=== PATIENT | female | born 1950 | race Caucasian/White ===

== ENCOUNTER → 2017-04-06 | Outpatient (CLI) | payer MEDICARE ==
[~2017-04-06] MED LIST: 'CLONIDINE0.1 MG PO; ALEVE220 MG; ASPIR LOW81 MG PO; ATENOLOL25 MG; ATENOLOL25 MG PO; BACTRIM DS 8001 TA1; BACTRIM DS 8001 TA1 PO; BUFFERED ASPIR325 M1; CAL-600600 MG; CLONIDINE0.1 MG; CLONIDINE0.1 MG PO; ENALAPRIL20 MG; ENALAPRIL20 MG PO; EPA FISH OIL1000 MG PO; EVISTA60 MG; EVISTA60 MG PO; FLOMAX0.4 MG PO; HYDROCODONE BIT1 T11 PO; JANUMET 500 MG-1 TAB; LEVOTHYROXIN0.025 MG; LEVOTHYROXIN0.025 MG PO; LIPITOR20 MG; METFORMIN500 MG PO; NORCO 5-325 TA1 EACH PO; OXYCODONE AND A1 TA3 PO; PERCOCET 325 MG1 TA7 PO; PRESERVISION LU1 SGL PO; TRAMADOL HCL50 MG PO; ULTRAM50 MG; ULTRAM50 MG PO; UNASYN 2 GM-11.5 GM IV; VICO10300 PO; VICODIN 5/500 505 M1; VITAMIN D32000 IU PO; ZIPSOR25 MG; Zofran4 MG PO
[2017-04-06 10:03] LABS: HEMATOCRIT 44.3 % (37.0-47.0); HEMOGLOBIN 14.7 g/dl (12.0-16.0); MEAN CELL VOLUME 93.5 fl (81.0-99.0); MEAN CORPUSCULAR HGB CONC 33.2 g/dl (33.0-37.0); MEAN PLATELET VOLUME 10.3 fl (9.6-12.3); RED BLOOD COUNT 4.74 10*6/uL (4.10-5.10); RED CELL DISTRI WIDTH 13.7 % (0-14.5); WHITE BLOOD COUNT 6.6 10*3/uL (4.8-10.8)
[2017-04-06 10:16] LABS: ALBUMIN 3.2 gm/dl (3.1-4.5); ALKALINE PHOSPHATASE 113 U/L (45-117); BILIRUBIN, DIRECT < 0.1 mg/dL (0.0-0.2); BILIRUBIN, TOTAL 0.4 mg/dl (0.2-1.0); BUN 16 mg/dl (7-24); CARBON DIOXIDE 28 mmol/L (21-32); CHLORIDE 108 mmol/L (98-107); CHOLESTEROL 217 mg/dL (<200); EST GLOM FILT AFRICAN AMERICAN > 60 ml/min; GLUCOSE 95 mg/dL (65-99); HDL CHOLESTEROL 42 mg/dl (40-60); LDL CHOLESTEROL 134 mg/dL (9-159); POTASSIUM 4.1 mmol/L (3.5-5.1); SGOT/AST 19 IU/L (3-35); SGPT/ALT 27 U/L (12-78); SODIUM 144 mmol/L (136-145); THYROXINE (T4) TOTAL 8.7 ug/dl (4.8-13.9); TOTAL PROTEIN 6.9 gm/dL (6.4-8.2); TRIGLYCERIDES 204 mg/dl (<150); VLDL CHOLESTEROL 41 mg/dL (6-40)
[2017-04-06 10:22] LABS: HEMOGLOBIN A1c 5.7 % (4.8-5.6)
== END | disposition home or self-care (01) ==
LOC: LAB 09:35
PROVIDERS: Family Medicine
DX: E03.9 Hypothyroidism, unspecified (principal); E78.00 Pure hypercholesterolemia, unspecified; R74.8 Abnormal levels of other serum enzymes; R73.9 Hyperglycemia, unspecified; Z79.899 Other long term (current) drug therapy

== ENCOUNTER 2017-07-11 14:38 | Emergency (ER) | payer MEDICARE ==
[~2017-07-11] VITALS: Ht 160 cm; Wt 103.0 kg
[2017-07-11 14:47] VITALS: BP 122/80
[2017-07-11 15:08] LABS: BILIRUBIN NEGATIVE (NEGATIVE); BLOOD 2+ (NEGATIVE); CLARITY CLOUDY (CLEAR); COLOR YELLOW (YELLOW); GLUCOSE NEGATIVE (NEGATIVE); KETONE NEGATIVE (NEGATIVE); LEUKO ESTERASE 3+ (NEGATIVE); NITRITE POSITIVE (NEGATIVE); PH 5.5 (5.0-9.0); UROBILINOGEN 0.2 E.U./dl (0.2-1.0)
[2017-07-11 15:17] LABS: BACTERIA 2+; EPITHELIAL CELLS TNTC; WBC TNTC wbc/hpf (0-5)
[2017-07-11 15:24] LABS: BASO % 0.4 % (0.0-1.0); EOS % 0.3 % (1.0-4.0); HEMATOCRIT 43.7 % (37.0-47.0); HEMOGLOBIN 14.4 g/dl (12.0-16.0); LYMPH # 1.1 10*3/uL (1.3-4.4); LYMPH % 10.6 % (27.0-41.0); MEAN CELL VOLUME 96.5 fl (81.0-99.0); MEAN CORPUSCULAR HGB 31.8 pg (27.0-31.0); MEAN PLATELET VOLUME 9.8 fl (9.6-12.3); MONO % 10.1 % (3.0-9.0); NEUT # 7.8 10*3/uL (2.3-7.9); NEUT % 78.1 % (47.0-73.0); PLATELET COUNT AUTOMATED 199 10*3/uL (130-400); RED BLOOD COUNT 4.53 10*6/uL (4.10-5.10); RED CELL DISTRI WIDTH 13.8 % (0-14.5)
[2017-07-11 15:39] LABS: ALBUMIN 2.9 gm/dl (3.1-4.5); ALKALINE PHOSPHATASE 120 U/L (45-117); BUN 18 mg/dl (7-24); CHLORIDE 106 mmol/L (98-107); CREATININE 0.88 mg/dL (0.55-1.02); POTASSIUM 4.2 mmol/L (3.5-5.1); SGOT/AST 16 IU/L (3-35); SGPT/ALT 26 U/L (12-78); SODIUM 141 mmol/L (136-145); TOTAL PROTEIN 7.2 gm/dL (6.4-8.2)
[2017-07-11] MEDS ORDERED: PYRIDIUM200 M1 PO (16:57)
[2017-07-11] MEDS ORDERED: MACROBID100 M1 PO (16:57)
== END 2017-07-11 19:49 | disposition home or self-care (01) ==
LOC: ED 14:38
PROVIDERS: Nurse Practitioner Family
DX: N23 Unspecified renal colic (principal); R11.0 Nausea; R68.83 Chills (without fever); Z88.8 Allergy status to other drugs, medicaments and biological substances; Z87.442 Personal history of urinary calculi; Z79.82 Long term (current) use of aspirin; Z79.899 Other long term (current) drug therapy

== ENCOUNTER → 2018-01-08 | Outpatient (CLI) | payer MEDICARE ==
[~2018-01-08] MED LIST changes: +MACROBID100 M1 PO; +PYRIDIUM200 M1 PO
[2018-01-08 17:17] LABS: BASO # 0.1 10*3/uL (0.0-0.1); BASO % 0.6 % (0.0-1.0); EOS # 0.2 10*3/uL (0.0-0.4); EOS % 2.3 % (1.0-4.0); HEMATOCRIT 45.4 % (37.0-47.0); HEMOGLOBIN 14.6 g/dl (12.0-16.0); LYMPH % 22.4 % (27.0-41.0); MEAN CORPUSCULAR HGB 30.2 pg (27.0-31.0); MEAN CORPUSCULAR HGB CONC 32.2 g/dl (33.0-37.0); MONO # 0.6 10*3/uL (0.1-1.0); MONO % 6.1 % (3.0-9.0); NEUT # 6.2 10*3/uL (2.3-7.9); NEUT % 68.3 % (47.0-73.0); PLATELET COUNT AUTOMATED 241 10*3/uL (130-400); RED BLOOD COUNT 4.83 10*6/uL (4.10-5.10); RED CELL DISTRI WIDTH 14.4 % (0-14.5); WHITE BLOOD COUNT 9.1 10*3/uL (4.8-10.8)
[2018-01-08 17:46] LABS: ALBUMIN 3.3 gm/dl (3.1-4.5); ALKALINE PHOSPHATASE 117 U/L (45-117); BILIRUBIN, DIRECT < 0.1 mg/dL (0.0-0.2); BUN 21 mg/dl (7-24); CHLORIDE 107 mmol/L (98-107); CREATININE 0.82 mg/dL (0.55-1.02); POTASSIUM 4.1 mmol/L (3.5-5.1); SGOT/AST 17 IU/L (3-35); SGPT/ALT 26 U/L (12-78); SODIUM 141 mmol/L (136-145); TOTAL PROTEIN 7.4 gm/dL (6.4-8.2)
== END | disposition home or self-care (01) ==
LOC: LAB 15:42
PROVIDERS: Family Medicine
DX: J98.11 Atelectasis (principal); I10 Essential (primary) hypertension; R73.9 Hyperglycemia, unspecified

== ENCOUNTER → 2018-08-22 | Outpatient (CLI) | payer MEDICARE ==
[2018-08-22 10:18] LABS: BASO % 0.6 % (0.0-1.0); EOS # 0.3 10*3/uL (0.0-0.4); EOS % 3.8 % (1.0-4.0); HEMATOCRIT 45.1 % (37.0-47.0); HEMOGLOBIN 14.7 g/dl (12.0-16.0); LYMPH # 1.7 10*3/uL (1.3-4.4); LYMPH % 25.1 % (27.0-41.0); MEAN CORPUSCULAR HGB 31.6 pg (27.0-31.0); MEAN CORPUSCULAR HGB CONC 32.6 g/dl (33.0-37.0); MEAN PLATELET VOLUME 10.2 fl (9.6-12.3); MONO # 0.5 10*3/uL (0.1-1.0); MONO % 7.6 % (3.0-9.0); NEUT # 4.1 10*3/uL (2.3-7.9); NEUT % 62.6 % (47.0-73.0); PLATELET COUNT AUTOMATED 202 10*3/uL (130-400); RED BLOOD COUNT 4.65 10*6/uL (4.10-5.10); RED CELL DISTRI WIDTH 14.3 % (0-14.5); WHITE BLOOD COUNT 6.6 10*3/uL (4.8-10.8)
[2018-08-22 10:44] LABS: ALBUMIN 3.3 gm/dl (3.1-4.5); ALKALINE PHOSPHATASE 117 U/L (45-117); BILIRUBIN, DIRECT 0.1 mg/dL (0.0-0.2); BUN 16 mg/dl (7-24); CHLORIDE 109 mmol/L (98-107); CHOLESTEROL 149 mg/dL (<200); CREATININE 0.79 mg/dL (0.55-1.02); HDL CHOLESTEROL 40 mg/dl (40-60); LDL CHOLESTEROL 80 mg/dL (9-159); POTASSIUM 4.4 mmol/L (3.5-5.1); SGOT/AST 14 IU/L (3-35); SGPT/ALT 26 U/L (12-78); SODIUM 145 mmol/L (136-145); THYROXINE (T4) TOTAL 9.2 ug/dl (4.8-13.9); TRIGLYCERIDES 145 mg/dl (<150); VLDL CHOLESTEROL 29 mg/dL (6-40)
== END | disposition home or self-care (01) ==
LOC: LAB 09:35
PROVIDERS: Family Medicine
DX: E03.9 Hypothyroidism, unspecified (principal); R73.9 Hyperglycemia, unspecified

== ENCOUNTER → 2018-10-26 | Outpatient (CLI) | payer MEDICARE | END | disposition home or self-care (01) | LOC: LAB 14:26 | DX: E55.9 Vitamin D deficiency, unspecified (principal) ==

== ENCOUNTER → 2019-07-23 | Outpatient (CLI) | payer MEDICARE ==
[~2019-07-23] MED LIST changes: +CIPRO500 MG PO; +COREG12.5 M1 PO; +HYDR25T PO; +OXYBUTYNIN5 MG PO
[2019-07-23 12:26] LABS: BASO % 0.2 % (0.0-1.0); HEMATOCRIT 47.1 % (37.0-47.0); HEMOGLOBIN 15.3 g/dl (12.0-16.0); LYMPH # 1.5 10*3/uL (1.3-4.4); LYMPH % 15.6 % (27.0-41.0); MEAN CELL VOLUME 93.5 fl (81.0-99.0); MEAN CORPUSCULAR HGB 30.4 pg (27.0-31.0); MEAN CORPUSCULAR HGB CONC 32.5 g/dl (33.0-37.0); MEAN PLATELET VOLUME 10.5 fl (9.6-12.3); MONO # 0.8 10*3/uL (0.1-1.0); MONO % 7.9 % (3.0-9.0); NEUT # 7.3 10*3/uL (2.3-7.9); NEUT % 75.9 % (47.0-73.0); PLATELET COUNT AUTOMATED 256 10*3/uL (130-400); RED BLOOD COUNT 5.04 10*6/uL (4.10-5.10); RED CELL DISTRI WIDTH 13.8 % (0-14.5); WHITE BLOOD COUNT 9.7 10*3/uL (4.8-10.8)
[2019-07-23 12:46] LABS: ALBUMIN 3.3 gm/dl (3.1-4.5); BILIRUBIN, DIRECT < 0.1 mg/dL (0.0-0.2); CHLORIDE 110 mmol/L (98-107); CHOLESTEROL 180 mg/dL (<200); CREATININE 0.84 mg/dL (0.55-1.02); POTASSIUM 4.1 mmol/L (3.5-5.1); SGOT/AST 11 IU/L (3-35); SODIUM 148 mmol/L (136-145); THYROXINE (T4) TOTAL 8.4 ug/dl (4.8-13.9); TRIGLYCERIDES 85 mg/dl (<150); VLDL CHOLESTEROL 17 mg/dL (6-40)
[2019-07-23 12:53] LABS: ALKALINE PHOSPHATASE 124 U/L (45-117); BUN 23 mg/dl (7-24); HDL CHOLESTEROL 48 mg/dl (40-60); LDL CHOLESTEROL 115 mg/dL (9-159); SGPT/ALT 19 U/L (12-78); THYROID STIM HORMONE (HS) 0.809 uIU/ml (0.358-4.75); TOTAL PROTEIN 7.1 gm/dL (6.4-8.2)
== END | disposition home or self-care (01) ==
LOC: LAB 11:37
PROVIDERS: Family Medicine
DX: E55.9 Vitamin D deficiency, unspecified (principal); I10 Essential (primary) hypertension; R73.9 Hyperglycemia, unspecified

== ENCOUNTER → 2019-09-03 | Outpatient (CLI) | payer MEDICARE ==
[2019-09-03 16:14] LABS: PHOSPHOROUS 2.6 mg/dL (2.5-4.9); POTASSIUM 4.7 mmol/L (3.5-5.1)
== END | disposition home or self-care (01) ==
LOC: LAB 15:01
PROVIDERS: Family Medicine
DX: E83.52 Hypercalcemia (principal); E87.0 Hyperosmolality and hypernatremia

== ENCOUNTER 2019-11-23 21:31 | Inpatient (IN) | payer MEDICARE ==
[~2019-11-23] VITALS: Ht 160 cm; Wt 103.9 kg
[2019-11-23 22:06] VITALS: BP 176/84
[2019-11-23 22:11] LABS: BASO % 0.4 % (0.0-1.0); EOS # 0.2 10*3/uL (0.0-0.4); EOS % 1.8 % (1.0-4.0); HEMATOCRIT 49.7 % (37.0-47.0); HEMOGLOBIN 15.8 g/dl (12.0-16.0); LYMPH % 17.9 % (27.0-41.0); MEAN CELL VOLUME 94.7 fl (81.0-99.0); MEAN CORPUSCULAR HGB 30.1 pg (27.0-31.0); MEAN CORPUSCULAR HGB CONC 31.8 g/dl (33.0-37.0); MEAN PLATELET VOLUME 10.3 fl (9.6-12.3); MONO # 0.8 10*3/uL (0.1-1.0); MONO % 7.7 % (3.0-9.0); NEUT # 7.9 10*3/uL (2.3-7.9); NEUT % 71.7 % (47.0-73.0); PLATELET COUNT AUTOMATED 233 10*3/uL (130-400); RED BLOOD COUNT 5.25 10*6/uL (4.10-5.10); RED CELL DISTRI WIDTH 13.8 % (0-14.5); WHITE BLOOD COUNT 10.9 10*3/uL (4.8-10.8)
[2019-11-23 22:22] LABS: ACT PARTIAL THROMBO TIME 27.1 SECONDS (20.0-32.1)
[2019-11-23 22:27] LABS: ALBUMIN 3.4 gm/dl (3.1-4.5); ALKALINE PHOSPHATASE 145 U/L (45-117); BUN 15 mg/dl (7-24); CHLORIDE 107 mmol/L (98-107); CREATININE 0.92 mg/dL (0.55-1.02); POTASSIUM 4.3 mmol/L (3.5-5.1); SGOT/AST 10 IU/L (3-35); SGPT/ALT 26 U/L (12-78); SODIUM 141 mmol/L (136-145); TOTAL PROTEIN 7.7 gm/dL (6.4-8.2)
[2019-11-23 22:28] LABS: TROPONIN I < 0.015 ng/ml (<0.045)
--- NOTE | 2019-11-23 22:31 | NUR ---
PT IS RESTING MORE COMFORTABLY AFTER THE MEDICATION. SHE IS STILL HAVING SOME PAIN BUT MORE COMFORTABLE. WILL CONTINUE TO MONITOR.
--- NOTE | 2019-11-23 23:05 | NUR ---
PT REPORTS THAT HER PAIN IS STARTING TO COME BACK. DOC MADE AWARE.
--- NOTE | 2019-11-23 23:24 | NUR ---
PT MEDICATED PER DOC ORDER AND NOW TO CT SCAN.
[2019-11-24] VITALS (8 sets, daily range): BP systolic 125–161; BP diastolic 68–106
--- NOTE | 2019-11-24 00:08 | NUR ---
PT RESTING IN ROOM WITH EYES CLOSED. NO SIGNS OF ACUTE DISTRESS. PENDING CT RESULTS .
--- NOTE | 2019-11-24 01:46 | NUR ---
A 69, admitted to , under the services of XAVIER Ortez DO with a diagnosis of CHEST PAIN, CHOLELITHIASIS, BILIARY COLIC. Chief complaint is LEFT BREAST PAIN, LUQ PAIN. Patient arrived via stretcher from ER. Monitor applied. Initial assessment completed. Vital signs taken and recorded. DR. Zuleyka MAZARIEGOS notified of admission to the unit. Orders received. See assessment for past medical history, medications and allergies. Patient and/or family oriented to [facility]. visitation policy reviewed. Clothing/patient valuable form completed. SIMON BOWEN RN
[2019-11-24] MEDS ORDERED: OMEPRAZOLE20 M2 PO (02:14)
[2019-11-24 04:06] LABS: BASO % 0.3 % (0.0-1.0); EOS # 0.1 10*3/uL (0.0-0.4); EOS % 0.8 % (1.0-4.0); HEMATOCRIT 44.3 % (37.0-47.0); HEMOGLOBIN 14.3 g/dl (12.0-16.0); LYMPH # 1.6 10*3/uL (1.3-4.4); LYMPH % 14.5 % (27.0-41.0); MEAN CELL VOLUME 93.7 fl (81.0-99.0); MEAN CORPUSCULAR HGB 30.2 pg (27.0-31.0); MEAN CORPUSCULAR HGB CONC 32.3 g/dl (33.0-37.0); MEAN PLATELET VOLUME 10.2 fl (9.6-12.3); MONO # 0.8 10*3/uL (0.1-1.0); MONO % 7.3 % (3.0-9.0); NEUT # 8.7 10*3/uL (2.3-7.9); NEUT % 76.8 % (47.0-73.0); PLATELET COUNT AUTOMATED 201 10*3/uL (130-400); RED BLOOD COUNT 4.73 10*6/uL (4.10-5.10); RED CELL DISTRI WIDTH 13.6 % (0-14.5); WHITE BLOOD COUNT 11.3 10*3/uL (4.8-10.8)
[2019-11-24 04:20] LABS: BUN 14 mg/dl (7-24); CHLORIDE 109 mmol/L (98-107); CREATININE 0.76 mg/dL (0.55-1.02); SODIUM 142 mmol/L (136-145)
[2019-11-24 04:25] LABS: CHOLESTEROL 215 mg/dL (<200); HDL CHOLESTEROL 39 mg/dl (40-60); LDL CHOLESTEROL 152 mg/dL (9-159); PHOSPHOROUS 2.5 mg/dL (2.5-4.9); TRIGLYCERIDES 120 mg/dl (<150); VLDL CHOLESTEROL 24 mg/dL (6-40)
--- NOTE | 2019-11-24 05:26 | NUR ---
PATIENT REQUESTED PRN MORPHINE AT THIS TIME FOR 8/10 PAIN IN HER LEFT CHEST/BREAST/LUQ. PATIENT ALERT AND ORIENTED X3 AT THIS TIME.
--- NOTE | 2019-11-24 06:05 | NUR ---
PATIENT STATED THAT HER PAIN WAS NOW A 4/10 REMAINS A&O X3.
--- NOTE | 2019-11-24 07:05 | NUR ---
PT'S HEART RATE UP TO 150. ON ASSESSMENT OF PT SHE IS DIAPHORETIC, SHORT OF BREATH AND C/O SEVERE PAIN UNDER LEFT BREAST AND AROUND TO BACK. BP 149/106. POX 92% ON ROOM AIR. HR 148. O2 PLACED ON PT AT 2L AND DR KILPATRICK NOTIFIED OF PT CHANGE IN CONDITION. EKG AND LAB WORK ORDERED STAT.
--- NOTE | 2019-11-24 07:19 | NUR ---
DR KILPATRICK IN TO SEE PT.
--- NOTE | 2019-11-24 08:22 | NUR ---
PT BREATHING ALITTLE EASIER NOT ANXIOUS SINCE RECEIVING ATIVAN AND MORPHINE IV BUT HEART RATE REMAINS IN THE 140'S AND PT STATES PAIN TO LEFT BREAST AREA REMAINS AN 8/10 ON PAIN SCALE IF SHE IS LYING STILL AND 10/10 IF SHE TRIES TO MOVE. POX 93% ON 3L NC. BP 155/88. DR KILPATRICK NOTIFIED OF CONDITION.
--- NOTE | 2019-11-24 10:30 | NUR ---
PT RESTING IN BED SLEEPING. HEART RATE DOWN TO 102 AT THIS TIME.
--- NOTE | 2019-11-24 11:36 | NUR ---
PT WOKE UP AND STATED HER PAIN WAS COMING BACK. CONTINUES TO C/O TO LEFT BREAST AREA PAIN. NSR RATE 80'S AT THIS TIME. MEDICATED WITH MORPHINE 3MG IV AT THIS TIME.
--- NOTE | 2019-11-24 12:14 | NUR ---
PT STATED MORPHINE WAS EFFECTIVE LONG SHE LAYS STILL THE PAIN IS BEARABLE BUT IS TERRIBLE WHEN SHE MOVES STILL.
--- NOTE | 2019-11-24 13:06 | NUR ---
DR RECINOS ANSWERING SERVICE MADE AWARE OF NEW CONSULT ORDER.
--- NOTE | 2019-11-24 15:49 | NUR ---
PT MEDICATED WITH MORPHINE 3MG IV AT HER REQUEST. PT CONTINUES TO C/O SEVERE PAIN TO HER LEFT BREAST AREA WORSE WITH MOVEMENT OR DEEP BREATHING.
--- NOTE | 2019-11-24 20:30 | NUR ---
PRN IV MORPHINE GIVEN AT THIS TIME FOR 10/10 LEFT BREAST PAIN, NON-RADIATING. PATIENT ANXIOUS, TACHYPNEIC AND TACHYCARDIC. ATTEMPTED TO INSTRUCT PATIENT ON BREATHING TECHNIQUES AND REPOSITIONING FOR PAIN AND ANXIETY RELIEF SHE STATED THAT ONLY THE MORPHINE WOULD WORK. CALL LIGHT WITHIN REACH WILL CONTINUE TO MONITOR.
--- NOTE | 2019-11-24 21:25 | NUR ---
PATIENT RESTING IN BED IN A POSITION OF COMFORT WITH EYES CLOSED, RESPIRATIONS EASY AND NON-LABORED AT THIS TIME, PATIENT ARROUSABLE BUT DROWSY, STATED SHE FELT BETTER AND PAIN WAS A 4/10 AT THIS TIME, CALL LIGHT WITHIN REACH, WILL CONTINUE TO MONITOR.
[2019-11-25] VITALS: BP 139/77
--- NOTE | 2019-11-25 01:24 | NUR ---
PATIENT MEDICATED WITH PRN IV MORPHINE AT THIS TIME FOR 10/10 LEFT BREAST PAIN. PATIENT A&O X3.
--- NOTE | 2019-11-25 02:22 | NUR ---
PATIENT RESTING IN BED IN A POSITION OF COMFORT AT THIS TIME WITH EYES CLOSED, ARROUSABLE BUT DROWSY. CALL LIGHT WITHIN REACH. WILL CONTINUE TO MONITOR,
--- NOTE | 2019-11-25 03:12 | NUR ---
24 HOUR CHART CHECK COMPLETED
[2019-11-25 06:22] LABS: BASO % 0.2 % (0.0-1.0); EOS # 0.2 10*3/uL (0.0-0.4); HEMATOCRIT 44.4 % (37.0-47.0); HEMOGLOBIN 14.1 g/dl (12.0-16.0); LYMPH # 1.5 10*3/uL (1.3-4.4); LYMPH % 17.4 % (27.0-41.0); MEAN CELL VOLUME 93.5 fl (81.0-99.0); MEAN CORPUSCULAR HGB 29.7 pg (27.0-31.0); MEAN CORPUSCULAR HGB CONC 31.8 g/dl (33.0-37.0); MEAN PLATELET VOLUME 10.5 fl (9.6-12.3); MONO # 0.8 10*3/uL (0.1-1.0); MONO % 9.4 % (3.0-9.0); NEUT # 5.9 10*3/uL (2.3-7.9); NEUT % 70.8 % (47.0-73.0); PLATELET COUNT AUTOMATED 212 10*3/uL (130-400); RED BLOOD COUNT 4.75 10*6/uL (4.10-5.10); RED CELL DISTRI WIDTH 13.8 % (0-14.5); WHITE BLOOD COUNT 8.3 10*3/uL (4.8-10.8)
[2019-11-25 06:30] LABS: ALBUMIN 2.8 gm/dl (3.1-4.5); ALKALINE PHOSPHATASE 114 U/L (45-117); BUN 16 mg/dl (7-24); CHLORIDE 109 mmol/L (98-107); CREATININE 0.77 mg/dL (0.55-1.02); POTASSIUM 3.4 mmol/L (3.5-5.1); SGOT/AST 10 IU/L (3-35); SGPT/ALT 20 U/L (12-78); SODIUM 141 mmol/L (136-145); TOTAL PROTEIN 6.5 gm/dL (6.4-8.2)
--- NOTE | 2019-11-25 07:30 | NUR ---
PT RESTING IN BED. VOICES NO CONCERNS AT THIS TIME. RESPS EASY AND NON LABORED. NO S/S OF DISTRESS NOTED. VSS. CALL LIGHT WITHIN REACH. WHITE BOARD UPDATED.
[2019-11-25 07:35] VITALS: BP 118/76
--- NOTE | 2019-11-25 07:51 | NUR ---
ASSESSMENT COMPLETED AND DOCUMENTED. PT C/O OF LEFT CHEST PAIN UNDER THE LEFT BREAST. RATES ON PAIN SCALE AN 8. MEDICATED PER MAR. PT. [facility] WITH TRANSPORT. ANGELLA ARNETT [facility]
--- NOTE | 2019-11-25 07:51 | NUR ---
ASSESSMENT COMPLETED AND DOCUMENTED. PT. C/O OF LEFT CHEST PAIN UNDER THE LEFT BREAST. ON PAIN SCALE RATES AN 8. MEDICATED PER MAR. PT. ESCORTED TO [facility] VIA W/C WITH TRANSPORT. ANGELLA DSOUZA
--- NOTE | 2019-11-25 07:54 | NUR ---
PT TAKEN OFF FLOOR TO ULTRASOUND
[2019-11-25 08:14] LABS: CLARITY SL CLOUDY (CLEAR); COLOR YELLOW (YELLOW)
[2019-11-25 08:15] LABS: BILIRUBIN NEGATIVE (NEGATIVE); BLOOD NEGATIVE (NEGATIVE); GLUCOSE NEGATIVE (NEGATIVE); KETONE NEGATIVE (NEGATIVE); LEUKO ESTERASE TRACE (NEGATIVE); NITRITE POSITIVE (NEGATIVE); SPECIFIC GRAVITY 1.025 (1.005-1.030); UROBILINOGEN 0.2 E.U./dl (0.2-1.0)
--- NOTE | 2019-11-25 08:15 | NUR ---
PT RETURN FROM ULTRASOUND. REQUESTING DIET ORDER. FLOOR NURSE AWARE. WILL REMAIN NPO UNTIL RESULTS OF GB SONO COMPLETE.
--- NOTE | 2019-11-25 08:16 | NUR ---
PT BACK FROM ULTRASOUND
--- NOTE | 2019-11-25 08:19 | NUR ---
Shift chart check completed.
[2019-11-25 08:23] LABS: BACTERIA 4+; WBC 41-50 wbc/hpf (0-5)
--- NOTE | 2019-11-25 08:27 | NUR ---
PHYSICAL THERAPY Pt admitted from home with abdominal and chest pain testing still in progress, please consult PT if functional status changes from baseline, thank you [facility]
--- NOTE | 2019-11-25 08:46 | NUR ---
PT REQUESTING TO EAT. CALLED DR MAZARIEGOS WHO STATED THEY WERE AWAITING HER ULTRASOUND RESULTS BEFORE CHANGING HER DIET ORDER AND TO KEEP HER NPO.
--- NOTE | 2019-11-25 09:59 | NUR ---
DR ZAPATA IN TO SEE PT
--- NOTE | 2019-11-25 10:04 | NUR ---
PT. RESTING IN BED VISITING WITH FAMILY. NO C/O AT THIS TIME. ANGELLA ARNETT [facility]
--- NOTE | 2019-11-25 11:12 | NUR ---
DR MAZARIEGOS CALLED AND ASKED THIS NURSE TO CALL RADIOLOGY TO SEE WHEN THE PTS ULTRASOUND WAS GOING TO BE READ. SPOKE WITH RADIOLOGY WHO STATED IT WOULD BE READ TODAY.
--- NOTE | 2019-11-25 11:57 | NUR ---
Fruit Grader in to talk to patient. Patient states lives at home with doug. There are no steps in the home. Physician: gaby marshall [facility] Home health services: none Patient's level of ADLs: INDEPENDENT Patient has working utilities: all working DME: none Follow-up physician's appointment after d/c: will be amde by hospitalist nurse director upon discharge Does patient want to access PORTAL?: no Discharge plan discussed with patient, she lives at home with , she is independent in adls and ambulation, she states she will return home when medically stable and denies any home needs. BLADIMIR FERNANDEZ
--- NOTE | 2019-11-25 12:00 | NUR ---
IV TO RIGHT HAND DC'D DUE TO LEAKING WHEN FLUSHED. SITE ASYMPTOMATIC WIHT SLIGHT ECCHYMOSIS NOTED. PT TOLERATED WELL. CATH INTACT.
--- NOTE | 2019-11-25 12:10 | NUR ---
IV MORPHINE GIVEN PER MAR Q4HRS PRN. STATES "IM IN A ALOT OF PAIN" RATES A 7 FOR LEFT CHEST PAIN. ANGELLA ARNETT [facility]
[2019-11-25 12:22] VITALS: BP 128/70
--- NOTE | 2019-11-25 13:15 | NUR ---
PT LAYING IN BED COMFORTABLY, VISITING WITH FRIENDS/FAMILY. PT DENIES PAIN AT THIS TIME. REPORT [facility]
--- NOTE | 2019-11-25 15:57 | NUR ---
Nursing screen received and chart reviewed. Patient admitted for increasing chest pain. If patient has a decline in ADLs, functional mobility, and transfers, please send OT orders. Thank you. Maxine Chiang, OTR/L
[2019-11-25 16:00] VITALS: BP 134/76
--- NOTE | 2019-11-25 16:40 | NUR ---
PT COMPLAINS OF 10/10 L BREAST PAIN. MEDICATED PER ORDER. WILL MONITOR FOR RELIEF. VOICES NO OTHER CONCERNS AT THIS TIME. RESPS EASY AND NON LABORED. CALL LIGHT WITHIN REACH.
--- NOTE | 2019-11-25 18:54 | NUR ---
PT MEDICATED FOR COMPLAINTS OF CONSTIPATION. WILL MONITOR
--- NOTE | 2019-11-25 19:00 | NUR ---
ASSUMED CARE FOR THIS PT AT THIS TIME. PT RESTING IN BED. C/O LT SIDE CHEST DISCOMFORT. VERY POOR INSPIRATION NOTED W/FAINT POSTERIOR BASE CRACKLES. PT ENCOURAGED DEEP BREATHING. PT REFUSING. PT TEACHING GIVEN ON ALL CARDIAC WORK UPS NEGATIVE AND PAIN IS MOST LIKELY LUNG PAIN. PT NON RECEPTIVE. CALL LIGHT IN REACH.
[2019-11-25 20:00] VITALS: BP 131/60
--- NOTE | 2019-11-25 20:40 | NUR ---
PT MEDICATED W/2 PERCOCET FOR C/O LT SIDE CHEST PAIN EXACERBATED W/MOVEMENT AND BREATHING 5/10. PT TEACHING GIVEN ON D/C OF MORPHINE AND LEFT PLEURAL EFFUSIONS AND LEFT ATELECTASIS W/NEED TO IMPROVE INSPIRATION. PT NON COMPLIANT AND WANTS MORPHINE. PT ADVISED TO SPEAK W/ ON ROUNDS TOMORROW. CALL LIGHT IN REACH.
--- NOTE | 2019-11-25 21:30 | NUR ---
PT RESTING QUIETLY IN BED W/EYES CLOSED. NO S/S OF DISTRESS NOTED. PRN PAIN MED EFFECTIVE.
[2019-11-26] VITALS: BP 108/54
--- NOTE | 2019-11-26 03:10 | NUR ---
24 HR chart check completed.
--- NOTE | 2019-11-26 05:52 | NUR ---
PT MEDICATED W/2 PERCOCET FOR C/O LT CHEST PAIN 02/06.
--- NOTE | 2019-11-26 07:00 | NUR ---
ARRIVED ON SHIFT, INTRODUCED TO PATIENT, NO NEEDS VOICED AT THIS TIME, BED IN LOW POSITION, WHEEL LOCKS ON, SIDE RAILS UP X1, CALL LIGHT WITHIN REACH. WHITE BOARD UPDATED.
[2019-11-26 08:00] VITALS: BP 128/70; BP 134/80
--- NOTE | 2019-11-26 08:28 | NUR ---
PT. INSTRUCTED ON I/S. PT. ACHIEVED A VOLUME OF 750 TO 1000. ENCOURAGED PT TO USE I/S Q 1 HOUR AND TO TAKE HOME UPON DISCHARGE. R/A PULSE OX 92%. O2 AVAILABLE AT 2L.
[2019-11-26] MEDS ORDERED: SEPTDS PO (08:56)
--- NOTE | 2019-11-26 09:00 | NUR ---
case management visits with patient, she will return home when medically stable and denies any home needs, case management will follow
--- NOTE | 2019-11-26 11:36 | NUR ---
Nutritional Support Services Note: Pt currently on a cardiac diet consuming 50-100% of meals. No nutrition intervention needed at this time. Will follow if needed. ARSH Reyna dietitic validation intern
[2019-11-26 12:00] VITALS: BP 138/76
--- NOTE | 2019-11-26 12:40 | NUR ---
Discharge instructions reviewed with patient/family. Patient receptive and verbalizes understanding. Follow-up care arranged. Written instructions given to patient/family, REINFORCED THAT SHE HAS APPOINT ON 12/05/2019 @ 12:00 ADVISED SHE NEEDS TO RETAIL STORE ASSOCIATE PERSCRIPTION, IV REMOVED, TELEMETRY, TAKEN OUT VIA W/C BY LUCÍA MCKEON
== END 2019-11-26 12:40 | disposition home or self-care (01) | DRG 206 ==
LOC: ED 21:31 → EDHOLD 11-24 01:12 → 4E 11-24 01:12
PROVIDERS: Emergency Medicine; Emergency Medicine Emergency Medical Services; Student in an Organized Health Care Education/Training Program; ADMIT Internal Medicine
DX: M94.0 Chondrocostal junction syndrome [Tietze] (principal); K80.64 Calculus of gallbladder and bile duct with chronic cholecystitis without obstruction; E44.0 Moderate protein-calorie malnutrition; Z68.41 Body mass index [BMI] 40.0-44.9, adult; N39.0 Urinary tract infection, site not specified; R07.89 Other chest pain; I77.810 Thoracic aortic ectasia; K76.0 Fatty (change of) liver, not elsewhere classified; D72.810 Lymphocytopenia; R73.9 Hyperglycemia, unspecified; E83.41 Hypermagnesemia; I10 Essential (primary) hypertension; M54.5 Low back pain; G89.29 Other chronic pain; K59.03 Drug induced constipation; E78.5 Hyperlipidemia, unspecified; E03.9 Hypothyroidism, unspecified; H35.30 Unspecified macular degeneration; M19.90 Unspecified osteoarthritis, unspecified site; Z96.653 Presence of artificial knee joint, bilateral; Z87.442 Personal history of urinary calculi; Z88.8 Allergy status to other drugs, medicaments and biological substances; Z79.82 Long term (current) use of aspirin; Z79.899 Other long term (current) drug therapy; Z80.1 Family history of malignant neoplasm of trachea, bronchus and lung; Z82.0 Family history of epilepsy and other diseases of the nervous system

== ENCOUNTER → 2020-04-14 | Outpatient (CLI) | payer MEDICARE ==
[~2020-04-14] MED LIST changes: +OMEPRAZOLE20 M2 PO; +SEPTDS PO
[2020-04-14 10:42] LABS: BASO # 0.1 10*3/uL (0.0-0.1); BASO % 0.7 % (0.0-1.0); EOS # 0.3 10*3/uL (0.0-0.4); EOS % 3.8 % (1.0-4.0); HEMATOCRIT 46.9 % (37.0-47.0); LYMPH # 1.8 10*3/uL (1.3-4.4); LYMPH % 25.5 % (27.0-41.0); MEAN CELL VOLUME 95.7 fl (81.0-99.0); MEAN CORPUSCULAR HGB 30.4 pg (27.0-31.0); MEAN CORPUSCULAR HGB CONC 31.8 g/dl (33.0-37.0); MEAN PLATELET VOLUME 10.7 fl (9.6-12.3); MONO # 0.6 10*3/uL (0.1-1.0); MONO % 7.8 % (3.0-9.0); NEUT # 4.4 10*3/uL (2.3-7.9); NEUT % 61.8 % (47.0-73.0); PLATELET COUNT AUTOMATED 242 10*3/uL (130-400); RED CELL DISTRI WIDTH 13.8 % (0-14.5); WHITE BLOOD COUNT 7.1 10*3/uL (4.8-10.8)
[2020-04-14 11:08] LABS: ALBUMIN 3.4 gm/dl (3.1-4.5); ALKALINE PHOSPHATASE 138 U/L (45-117); BILIRUBIN, DIRECT < 0.1 mg/dL (0.0-0.2); BUN 20 mg/dl (7-24); CHLORIDE 108 mmol/L (98-107); CREATININE 1.01 mg/dL (0.55-1.02); POTASSIUM 4.6 mmol/L (3.5-5.1); SGOT/AST 15 IU/L (3-35); SGPT/ALT 25 U/L (12-78); SODIUM 142 mmol/L (136-145); TOTAL PROTEIN 7.3 gm/dL (6.4-8.2)
== END | disposition home or self-care (01) ==
LOC: LAB 10:01
PROVIDERS: Family Medicine
DX: K59.00 Constipation, unspecified (principal); I10 Essential (primary) hypertension; E11.9 Type 2 diabetes mellitus without complications; E55.9 Vitamin D deficiency, unspecified; Z79.899 Other long term (current) drug therapy

== ENCOUNTER → 2020-05-06 | Outpatient (CLI) | payer MEDICARE | END | disposition home or self-care (01) | LOC: US 08:30 | DX: N20.0 Calculus of kidney (principal); N28.1 Cyst of kidney, acquired; N39.0 Urinary tract infection, site not specified ==

== ENCOUNTER → 2021-03-12 | Outpatient (CLI) | payer MEDICARE | END | disposition home or self-care (01) | LOC: LAB 16:03 | PROVIDERS: ATTEND Surgery | DX: E21.3 Hyperparathyroidism, unspecified (principal) ==

== ENCOUNTER → 2021-04-19 | Outpatient (CLI) | payer MEDICARE ==
[2021-04-19 11:57] LABS: BASO # 0.1 10*3/uL (0.0-0.1); BASO % 0.7 % (0.0-1.0); EOS # 0.4 10*3/uL (0.0-0.4); EOS % 5.9 % (1.0-4.0); HEMATOCRIT 45.5 % (37.0-47.0); MEAN CELL VOLUME 94.4 fl (81.0-99.0); MEAN CORPUSCULAR HGB 30.3 pg (27.0-31.0); MEAN CORPUSCULAR HGB CONC 32.1 g/dl (33.0-37.0); MEAN PLATELET VOLUME 10.1 fl (9.6-12.3); MONO # 0.6 10*3/uL (0.1-1.0); MONO % 8.3 % (3.0-9.0); NEUT # 4.2 10*3/uL (2.3-7.9); NEUT % 57.5 % (47.0-73.0); PLATELET COUNT AUTOMATED 240 10*3/uL (130-400); RED BLOOD COUNT 4.82 10*6/uL (4.10-5.10); RED CELL DISTRI WIDTH 13.6 % (0-14.5); WHITE BLOOD COUNT 7.2 10*3/uL (4.8-10.8)
[2021-04-19 12:26] LABS: ALBUMIN 3.2 gm/dl (3.1-4.5); ALKALINE PHOSPHATASE 110 U/L (45-117); BILIRUBIN, DIRECT < 0.1 mg/dL (0.0-0.2); BUN 18 mg/dl (7-24); CHLORIDE 108 mmol/L (98-107); CHOLESTEROL 250 mg/dL (<200); CREATININE 0.78 mg/dL (0.55-1.02); LDL CHOLESTEROL 180 mg/dL (9-159); POTASSIUM 4.3 mmol/L (3.5-5.1); SGOT/AST 11 IU/L (3-35); SGPT/ALT 14 U/L (12-78); SODIUM 145 mmol/L (136-145); THYROXINE (T4) TOTAL 8.1 ug/dl (4.8-13.9); TOTAL PROTEIN 6.8 gm/dL (6.4-8.2); TRIGLYCERIDES 169 mg/dl (<150)
== END | disposition home or self-care (01) ==
LOC: LAB 11:26
PROVIDERS: ATTEND Family Medicine
DX: E03.9 Hypothyroidism, unspecified (principal); R73.9 Hyperglycemia, unspecified

== ENCOUNTER → 2021-05-26 | Outpatient (CLI) | payer MEDICARE | END | disposition home or self-care (01) | LOC: LAB 11:42 | PROVIDERS: ATTEND Internal Medicine Endocrinology, Diabetes & Metabolism | DX: E55.9 Vitamin D deficiency, unspecified (principal) ==

== ENCOUNTER → 2021-06-14 | Outpatient (CLI) | payer MEDICARE ==
[2021-06-15 13:07] LABS: LUTEINIZING HORMONE <0.3 mIU/mL (.)
[2021-06-15 14:08] LABS: PROLACTIN 10.5 ng/mL (4.8-23.3)
== END | disposition home or self-care (01) ==
LOC: LAB 08:23
PROVIDERS: ATTEND Internal Medicine Endocrinology, Diabetes & Metabolism
DX: E24.9 Cushing's syndrome, unspecified (principal)

== ENCOUNTER → 2021-07-01 | Outpatient (CLI) | payer MEDICARE | END | disposition home or self-care (01) | LOC: RAD 14:58 | PROVIDERS: ATTEND Orthopaedic Surgery | DX: M47.817 Spondylosis without myelopathy or radiculopathy, lumbosacral region (principal); M47.814 Spondylosis without myelopathy or radiculopathy, thoracic region; M48.061 Spinal stenosis, lumbar region without neurogenic claudication ==

== ENCOUNTER → 2021-11-29 | Outpatient (CLI) | payer MEDICARE ==
[2021-11-29 13:45] LABS: ALBUMIN 3.2 gm/dl (3.1-4.5); ALKALINE PHOSPHATASE 114 U/L (45-117); BUN 18 mg/dl (7-24); CHLORIDE 110 mmol/L (98-107); CHOLESTEROL 161 mg/dL (<200); FREE T4 1.01 ng/dl (0.76-1.46); LDL CHOLESTEROL 92 mg/dL (9-159); POTASSIUM 4.2 mmol/L (3.5-5.1); SGOT/AST 16 IU/L (3-35); SGPT/ALT 25 U/L (12-78); SODIUM 145 mmol/L (136-145); TOTAL PROTEIN 6.6 gm/dL (6.4-8.2)
== END | disposition home or self-care (01) ==
LOC: LAB 11:01
PROVIDERS: ATTEND Internal Medicine Endocrinology, Diabetes & Metabolism
DX: E83.52 Hypercalcemia (principal); E78.2 Mixed hyperlipidemia; E03.9 Hypothyroidism, unspecified

== ENCOUNTER → 2022-03-16 | Outpatient (CLI) | payer MEDICARE | END | disposition home or self-care (01) | LOC: RAD 16:49 | PROVIDERS: ATTEND Family Medicine | DX: M25.552 Pain in left hip (principal) ==

== ENCOUNTER → 2022-07-08 | Outpatient (CLI) | payer MEDICARE ==
[2022-07-08 18:36] LABS: BASO # 0.1 10*3/uL (0.0-0.1); BASO % 0.6 % (0.0-1.0); EOS # 0.3 10*3/uL (0.0-0.4); HEMATOCRIT 44.7 % (37.0-47.0); LYMPH # 2.2 10*3/uL (1.3-4.4); MEAN CELL VOLUME 94.5 fl (81.0-99.0); MEAN CORPUSCULAR HGB 30.7 pg (27.0-31.0); MEAN CORPUSCULAR HGB CONC 32.4 g/dl (33.0-37.0); MEAN PLATELET VOLUME 10.7 fl (9.6-12.3); MONO # 0.6 10*3/uL (0.1-1.0); MONO % 7.1 % (3.0-9.0); NEUT # 4.8 10*3/uL (2.3-7.9); NEUT % 59.8 % (47.0-73.0); PLATELET COUNT AUTOMATED 232 10*3/uL (130-400); RED BLOOD COUNT 4.73 10*6/uL (4.10-5.10); RED CELL DISTRI WIDTH 13.8 % (0-14.5); WHITE BLOOD COUNT 7.9 10*3/uL (4.8-10.8)
[2022-07-08 18:48] LABS: ALKALINE PHOSPHATASE 103 U/L (45-117); BUN 18 mg/dl (7-24); CHLORIDE 109 mmol/L (98-107); CREATININE 0.76 mg/dL (0.55-1.02); POTASSIUM 4.2 mmol/L (3.5-5.1); SGOT/AST 14 IU/L (3-35); SGPT/ALT 20 U/L (12-78); SODIUM 143 mmol/L (136-145); TOTAL PROTEIN 6.8 gm/dL (6.4-8.2)
== END | disposition home or self-care (01) ==
LOC: LAB 16:21
PROVIDERS: Family Medicine; ATTEND Urology
DX: I10 Essential (primary) hypertension (principal); R73.9 Hyperglycemia, unspecified; N20.0 Calculus of kidney

== ENCOUNTER → 2022-08-08 | Outpatient (CLI) | payer MEDICARE ==
[2022-08-08 15:11] LABS: BASO # 0.1 10*3/uL (0.0-0.1); BASO % 0.8 % (0.0-1.0); EOS # 0.3 10*3/uL (0.0-0.4); EOS % 3.5 % (1.0-4.0); HEMATOCRIT 45.9 % (37.0-47.0); LYMPH # 1.9 10*3/uL (1.3-4.4); LYMPH % 26.3 % (27.0-41.0); MEAN CELL VOLUME 94.1 fl (81.0-99.0); MEAN CORPUSCULAR HGB 30.3 pg (27.0-31.0); MEAN CORPUSCULAR HGB CONC 32.2 g/dl (33.0-37.0); MEAN PLATELET VOLUME 9.8 fl (9.6-12.3); MONO # 0.6 10*3/uL (0.1-1.0); MONO % 8.8 % (3.0-9.0); NEUT # 4.3 10*3/uL (2.3-7.9); NEUT % 60.3 % (47.0-73.0); PLATELET COUNT AUTOMATED 227 10*3/uL (130-400); RED BLOOD COUNT 4.88 10*6/uL (4.10-5.10); RED CELL DISTRI WIDTH 13.8 % (0-14.5); WHITE BLOOD COUNT 7.2 10*3/uL (4.8-10.8)
[2022-08-08 15:12] LABS: BILIRUBIN Negative (Negative); BLOOD Negative (Negative); CLARITY Clear (Clear); COLOR Yellow (Yellow); GLUCOSE Negative (Negative); KETONE Negative (Negative); LEUKO ESTERASE 1+ (Negative); NITRITE Positive (Negative); PH 5.5 (4.5-8.0); SPECIFIC GRAVITY 1.025 (1.001-1.030)
[2022-08-08 15:23] LABS: BACTERIA 4+
[2022-08-08 15:24] LABS: WBC 41-50 wbc/hpf (0-5)
[2022-08-08 15:27] LABS: ACT PARTIAL THROMBO TIME 26.5 SECONDS (20.0-32.1)
== END | disposition home or self-care (01) ==
LOC: LAB 14:37
PROVIDERS: ATTEND Pain Medicine Interventional Pain Medicine
DX: D68.8 Other specified coagulation defects (principal)

== ENCOUNTER → 2022-10-10 | Outpatient (CLI) | payer MEDICARE ==
[2022-10-10 12:24] LABS: BASO # 0.1 10*3/uL (0.0-0.1); BASO % 0.7 % (0.0-1.0); EOS # 0.3 10*3/uL (0.0-0.4); EOS % 3.9 % (1.0-4.0); HEMATOCRIT 45.6 % (37.0-47.0); LYMPH # 1.7 10*3/uL (1.3-4.4); LYMPH % 24.6 % (27.0-41.0); MEAN CELL VOLUME 93.3 fl (81.0-99.0); MEAN CORPUSCULAR HGB 30.9 pg (27.0-31.0); MEAN CORPUSCULAR HGB CONC 33.1 g/dl (33.0-37.0); MEAN PLATELET VOLUME 10.1 fl (9.6-12.3); MONO # 0.5 10*3/uL (0.1-1.0); MONO % 6.6 % (3.0-9.0); NEUT # 4.4 10*3/uL (2.3-7.9); NEUT % 63.8 % (47.0-73.0); PLATELET COUNT AUTOMATED 228 10*3/uL (130-400); RED BLOOD COUNT 4.89 10*6/uL (4.10-5.10); RED CELL DISTRI WIDTH 13.8 % (0-14.5); WHITE BLOOD COUNT 6.9 10*3/uL (4.8-10.8)
[2022-10-10 12:38] LABS: BILIRUBIN Negative (Negative); BUN 12 mg/dl (9-23); CHLORIDE 106 mmol/L (98-107); CLARITY Turbid (Clear); COLOR Yellow (Yellow); CREATININE 0.68 mg/dL (0.55-1.02); GLUCOSE Negative (Negative); SODIUM 143 mmol/L (136-145)
[2022-10-10 12:39] LABS: BLOOD Negative (Negative); KETONE Negative (Negative); LEUKO ESTERASE Trace (Negative); NITRITE Positive (Negative); PH 6.5 (4.5-8.0); SPECIFIC GRAVITY 1.015 (1.001-1.030); UROBILINOGEN 0.2 E.U./dl (0.0-1.0); WBC 16-20 wbc/hpf (0-5)
[2022-10-10 12:40] LABS: BACTERIA 4+
== END | disposition home or self-care (01) ==
LOC: LAB 11:41
PROVIDERS: ATTEND Neurological Surgery
DX: M54.16 Radiculopathy, lumbar region (principal); R82.90 Unspecified abnormal findings in urine; Z79.899 Other long term (current) drug therapy

== ENCOUNTER → 2023-08-21 | Outpatient (CLI) | payer MEDICARE | END | disposition home or self-care (01) | LOC: LAB 13:39 | PROVIDERS: ATTEND Nurse Practitioner Gerontology | DX: N20.0 Calculus of kidney (principal); I70.0 Atherosclerosis of aorta; R73.9 Hyperglycemia, unspecified ==

== ENCOUNTER → 2023-12-04 | Outpatient (CLI) | payer MEDICARE ==
[2023-12-04 12:00] LABS: BASO # 0.1 10*3/uL (0.0-0.1); BASO % 0.8 % (0.0-1.0); EOS # 0.3 10*3/uL (0.0-0.4); EOS % 4.1 % (1.0-4.0); LYMPH # 1.7 10*3/uL (1.3-4.4); LYMPH % 27.9 % (27.0-41.0); MEAN CELL VOLUME 94.7 fl (81.0-99.0); MEAN CORPUSCULAR HGB 30.2 pg (27.0-31.0); MEAN CORPUSCULAR HGB CONC 31.9 g/dl (33.0-37.0); MEAN PLATELET VOLUME 10.1 fl (9.6-12.3); MONO # 0.5 10*3/uL (0.1-1.0); MONO % 7.4 % (3.0-9.0); NEUT # 3.6 10*3/uL (2.3-7.9); NEUT % 59.5 % (47.0-73.0); PLATELET COUNT AUTOMATED 239 10*3/uL (130-400); RED BLOOD COUNT 5.07 10*6/uL (4.10-5.10); RED CELL DISTRI WIDTH 14.2 % (0-14.5); WHITE BLOOD COUNT 6.1 10*3/uL (4.8-10.8)
[2023-12-04 12:41] LABS: ALKALINE PHOSPHATASE 106 U/L (46-116); BUN 14 mg/dl (9-23); CHLORIDE 107 mmol/L (98-107); CHOLESTEROL 239 mg/dL (<200); LDL CHOLESTEROL 172 mg/dL (9-159); POTASSIUM 4.3 mmol/L (3.4-5.1); SGPT/ALT 9 U/L (5-49); TOTAL PROTEIN 6.8 gm/dL (6.0-8.0); TRIGLYCERIDES 134 mg/dl (<150)
== END | disposition home or self-care (01) ==
LOC: LAB 11:18
PROVIDERS: Family Medicine; ATTEND Nurse Practitioner Gerontology
DX: N20.0 Calculus of kidney (principal); R73.9 Hyperglycemia, unspecified; E78.00 Pure hypercholesterolemia, unspecified; Z79.899 Other long term (current) drug therapy

== ENCOUNTER → 2024-05-08 | Outpatient (CLI) | payer MEDICARE ==
[2024-05-08 11:28] LABS: BASO # 0.1 10*3/uL (0.0-0.1); BASO % 0.9 % (0.0-1.0); EOS # 0.5 10*3/uL (0.0-0.4); EOS % 7.6 % (1.0-4.0); HEMATOCRIT 44.7 % (37.0-47.0); LYMPH # 1.7 10*3/uL (1.3-4.4); LYMPH % 26.3 % (27.0-41.0); MEAN CELL VOLUME 93.1 fl (81.0-99.0); MEAN CORPUSCULAR HGB 30.6 pg (27.0-31.0); MEAN CORPUSCULAR HGB CONC 32.9 g/dl (33.0-37.0); MEAN PLATELET VOLUME 10.4 fl (9.6-12.3); MONO # 0.5 10*3/uL (0.1-1.0); MONO % 7.1 % (3.0-9.0); NEUT # 3.7 10*3/uL (2.3-7.9); NEUT % 57.8 % (47.0-73.0); PLATELET COUNT AUTOMATED 210 10*3/uL (130-400); WHITE BLOOD COUNT 6.5 10*3/uL (4.8-10.8)
[2024-05-08 11:52] LABS: ALKALINE PHOSPHATASE 103 U/L (46-116); BUN 12 mg/dl (9-23); CHLORIDE 108 mmol/L (98-107); CHOLESTEROL 152 mg/dL (<200); LDL CHOLESTEROL 86 mg/dL (9-159); POTASSIUM 3.9 mmol/L (3.4-5.1); SGPT/ALT 10 U/L (5-49); THYROXINE (T4) TOTAL 6.9 ug/dl (4.5-10.9); TOTAL PROTEIN 6.5 gm/dL (6.0-8.0); TRIGLYCERIDES 126 mg/dl (<150)
[2024-05-08 12:09] LABS: VITAMIN D, 25-HYDROXY 54.1 ng/mL (30-100)
== END ==
LOC: LAB 09:56 → US 10:00
PROVIDERS: Family Medicine; ATTEND Urology
DX: N20.0 Calculus of kidney (principal); N28.89 Other specified disorders of kidney and ureter; E03.9 Hypothyroidism, unspecified; N28.1 Cyst of kidney, acquired; M47.816 Spondylosis without myelopathy or radiculopathy, lumbar region; M48.061 Spinal stenosis, lumbar region without neurogenic claudication

== ENCOUNTER → 2024-06-24 | Outpatient (CLI) | payer MEDICARE | END | disposition home or self-care (01) | LOC: LAB 11:29 | PROVIDERS: ATTEND Urology | DX: N39.0 Urinary tract infection, site not specified (principal) ==